=== PATIENT | male | born 1965 | race Caucasian/White ===

== ENCOUNTER 2017-01-12 22:01 | Emergency (ER) | payer MEDICAID, MEDICARE, OTHER ==
[~2017-01-12] VITALS: Ht 170.2 cm; Wt 66.8 kg
[~2017-01-12 22:01] MED LIST: CYMB60CA PO; DILA4TAB10 PO; PREG75 PO; SERO300T PO; STOO100C PO; XANA1TAB6 PO; [UNRECOGNIZED DRUG - OTHER]
[2017-01-12 22:19] VITALS: BP 147/73; PULSE 94; RESP 16; TEMP 99.4; O2SAT 98
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
[2017-01-12] MEDS ORDERED: ACETAMINOPHEN/HYDROcodone 325 MG/5 MG TAB PO ONE (23:30)
[2017-01-12 23:47] LABS: AUTOMATED NEUTROPHIL # 7.9 TH/MM3 (1.8-7.7); BASOPHIL # 0.1 TH/MM3 (0-0.2); BASOPHIL % 0.6 % (0.0-2.0); EOSINOPHIL # 0.2 TH/MM3 (0-0.4); EOSINOPHIL % 1.5 % (0.0-4.0); HEMATOCRIT 37.3 % (39.0-51.0); HEMO FLAGS DIFF FINAL; LYMPH % 29.7 % (9.0-44.0); LYMPHOCYTE # 4.2 TH/MM3 (1.0-4.8); MEAN CELL VOLUME 85.2 FL (80.0-100.0); MEAN CORPUSCULAR HEMOGLOBIN 29.5 PG (27.0-34.0); MEAN CORPUSCULAR HGB CONC 34.7 % (32.0-36.0); MONO % 11.9 % (0.0-8.0); NEUT % 56.3 % (16.0-70.0); PLATELET COUNT 421 TH/MM3 (150-450); RED BLOOD COUNT 4.37 MIL/MM3 (4.50-5.90); RED CELL DISTRIBUTION WIDTH 12.7 % (11.6-17.2); WHITE BLOOD COUNT 14.1 TH/MM3 (4.0-11.0)
[2017-01-13 00:08] LABS: ANION GAP 8 MEQ/L (5-15)
[2017-01-13 00:13] LABS: ACETAMINOPHEN LESS THAN 2.0 MCG/ML (10.0-30.0); ALKALINE PHOSPHATASE 96 U/L (45-117); ALT (GPT) 20 U/L (12-78); AST (GOT) 12 U/L (15-37); BICARBONATE 29.3 MEQ/L (21.0-32.0); BLOOD UREA NITROGEN 13 MG/DL (7-18); CHLORIDE 106 MEQ/L (98-107); GLOMERULAR FILTRATION RATE 117 ML/MIN (>89); POTASSIUM 3.8 MEQ/L (3.5-5.1); SODIUM (NA) 143 MEQ/L (136-145); TOTAL BILIRUBIN ADULT 0.3 MG/DL (0.2-1.0)
--- NOTE | 2017-01-13 00:58 | PD ---
Data Data Last Documented VS Vital Signs Date Time Temp Pulse Resp B/P Pulse Ox O2 Delivery O2 Flow Rate FiO2 01/12/17 22:19 99.4 94 16 147/73 98 Orders Complete Blood Count With Diff (01/12/17 22:05) Comprehensive Metabolic Panel (01/12/17 22:05) Urinalysis - C+S If Indicated (01/12/17 22:05) Iv Access Insert/Monitor (01/12/17 22:05) Psych Screen (01/12/17 22:05) Drug Screen, Random Urine (01/12/17 22:05) Alcohol (Ethanol) (01/12/17 22:05) Salicylates (Aspirin) (01/12/17 22:05) Tylenol (Acetaminophen) (01/12/17 22:05) Acetamin-Hydrocod 325-5 Mg ([place] 5-325 (01/12/17 23:30) Labs Laboratory Tests Test 01/12/17 23:30 White Blood Count 14.1 TH/MM3 Red Blood Count 4.37 MIL/MM3 Hemoglobin 12.9 GM/DL Hematocrit 37.3 % Mean Corpuscular Volume 85.2 FL Mean Corpuscular Hemoglobin 29.5 PG Mean Corpuscular Hemoglobin 34.7 % Concent Red Cell Distribution Width 12.7 % Platelet Count 421 TH/MM3 Mean Platelet Volume 8.3 FL Neutrophils (%) (Auto) 56.3 % Lymphocytes (%) (Auto) 29.7 % Monocytes (%) (Auto) 11.9 % Eosinophils (%) (Auto) 1.5 % Basophils (%) (Auto) 0.6 % Neutrophils # (Auto) 7.9 TH/MM3 Lymphocytes # (Auto) 4.2 TH/MM3 Monocytes # (Auto) 1.7 TH/MM3 Eosinophils # (Auto) 0.2 TH/MM3 Basophils # (Auto) 0.1 TH/MM3 CBC Comment DIFF FINAL Differential Comment Sodium Level 143 MEQ/L Potassium Level 3.8 MEQ/L Chloride Level 106 MEQ/L Carbon Dioxide Level 29.3 MEQ/L Anion Gap 8 MEQ/L Blood Urea Nitrogen 13 MG/DL Creatinine 0.71 MG/DL Estimat Glomerular Filtration 117 ML/MIN Rate Random Glucose 95 MG/DL Calcium Level 8.7 MG/DL Total Bilirubin 0.3 MG/DL Aspartate Amino Transf 12 U/L (AST/SGOT) Alanine Aminotransferase 20 U/L (ALT/SGPT) Alkaline Phosphatase 96 U/L Total Protein 8.1 GM/DL Albumin 3.5 GM/DL Salicylates Level 5.0 MG/DL Acetaminophen Level LESS THAN 2.0 MCG/ML Ethyl Alcohol Level LESS THAN 3 MG/DL [facility] Medical Record Reviewed: Yes Supervised Visit with STAR: Yes Differential Diagnosis Altered mental status/psychosis due to infection/environmental exposure/ metabolic abnormality, polypharmacy, alcohol abuse/intoxication, illicit or prescribed drug abuse, malingering/secondary gain, non-organic psychiatric disease Narrative Course I, Dr. Weber, have reviewed the advance practice practitioner's documentation and am in agreement, met with the patient face to face, made the diagnosis, and the medical decision making was done by me. *My assessment and Findings: The history of present illness, ROS, physical exam , review of records and medical workup performed for today's visit have reasonably safely excluded organic etiologies for the patient's presenting complaint. We will continue to monitor the patient carefully in the ER until time of evaluation by the psychiatry service. We are available for any additional medical assistance if needed during the patient's ER course. Disposition per discretion of psychiatry is appreciated. CBC & BMP Diagram 01/12/17 23:30 LFTs normal Please note the patient tends to have an elevated white blood cell count and in this scenario is considered nonspecific. Diagnosis Primary Impression: Suicidal ideation Additional Impressions: Chronic pain Qualified Code: G89.29 - Other chronic pain Opioid dependence Qualified Code: F11.20 - Uncomplicated opioid dependence Scripts No Active Prescriptions or Reported Meds Tolu Weber MD Jan 13, 2017 00:58
[2017-01-13 01:56] LABS: AMPHETAMINE, URINE NEG (NEG); BARBITURATES, URINE NEG (NEG); COCAINE, URINE NEG (NEG)
[2017-01-13 02:00] LABS: BLOOD, URINE SMALL (NEG); COMMENT (UR) CULT NOT INDICATED; CULTURE IF INDICATED CULT NOT INDICATED; GLUCOSE,URINE 150 mg/dL (NEG); KETONE, URINE TRACE mg/dL (NEG); MUCUS URINE FEW /lpf (OCC); NITRITE,URINE NEG (NEG); PH, URINE 6.5 (5.0-8.5); SQUAMOUS EPITHELIAL CELL URINE <1 /hpf (0-5); URINE COLOR YELLOW (YELLW/STRAW)
[2017-01-13] MEDS ORDERED: GABA600T PO (02:39)
[2017-01-13 03:00] VITALS: BP 140/72; PULSE 90; RESP 14; O2SAT 98
[2017-01-13] MEDS ORDERED: GABAPENTIN 300 MG CAP PO ONE (05:30)
[2017-01-13] MEDS ORDERED: ACETAMINOPHEN/HYDROcodone 325 MG/5 MG TAB PO ONE (05:30)
[2017-01-13] MEDS ORDERED: ONDANSETRON ODT 4 MG TAB PO PRN (09:15)
[2017-01-13] MEDS: GABAPENTIN 300 MG CAP PO SCH ×3 (09:19→23:35)
[2017-01-13] MEDS: IBUPROFEN 600 MG TAB PO PRN ×2 (09:20→23:35)
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
[2017-01-13] MEDS ORDERED: FAMO20TA2 PO (12:47)
[2017-01-13] MEDS ORDERED: RISP1TAB2 PO (12:47)
[2017-01-13] MEDS ORDERED: ONDA1TAB17 PO (12:47)
[2017-01-13 15:00] VITALS: BP 153/87; PULSE 104; RESP 18; TEMP 97.9; O2SAT 95
[2017-01-13 22:35] VITALS: BP 151/88; PULSE 67; RESP 19; O2SAT 99
[2017-01-14 02:00] VITALS: BP 153/105; PULSE 84; RESP 17; O2SAT 98
[2017-01-14 06:00] VITALS: BP 169/94; PULSE 85; RESP 18; O2SAT 99
[2017-01-14] MEDS: GABAPENTIN 300 MG CAP PO SCH ×2 (06:00→12:00)
[2017-01-14 11:01] VITALS: BP 130/77; PULSE 72; RESP 18; O2SAT 98
[2017-01-14 15:25] VITALS: BP 161/81; PULSE 81; RESP 16; O2SAT 98
--- NOTE | 2017-01-14 19:24 | MB ---
cc: MUNIR DOMINGO DATE OF CONSULTATION 01/14/17 REFERRING PHYSICIAN Emergency department REASON FOR CONSULTATION Miranda Act HISTORY OF PRESENT ILLNESS Mr. Correa is a 51-year-old male with a history of depression who presents under a Miranda Act from [facility]'s Office alleging that the patient articulated suicidal ideation in the setting of running out of his medication for the management of his chronic pain. Reviewing the electronic medical record, I note that the patient was admitted most recently under Dr. Montemayor in 2011 with a discharge diagnosis of major depression and chronic pain. I also note that the patient was evaluated by the psychiatric nurse practitioner yesterday, at which point he was continuing to articulate suicidal ideation. The patient seen and examined. Chart reviewed. Case discussed with nurse in the J pod. There has been no evidence of any suicidal or homicidal behavior while under observation in the emergency room for approximately 45 hours. On my evaluation today, the patient is requesting discharge from the psychiatric emergency room. He says "I want to go home". He denies any suicidal ideation, intent or plan on direct questioning and says that he is no longer suicidal because his pain is now under better control. He says that he would not hurt himself because of his life affirming zoroastrian beliefs. He does admit that his mood is somewhat depressed and his sleep is poor, but otherwise I can elicit no depressive or hypomanic/manic symptoms in this patient at this time. He denies any homicidal ideation. He denies any audiovisual hallucinations and I can elicit no delusional beliefs. The remainder of the psychiatric ROS is negative. PAST PSYCHIATRIC HISTORY The patient has a history of multiple prior psychiatric hospitalizations within our system, most recently in [address] Montemayor as I said. The patient denies any history of suicide attempts. He is not presently under the care of a psychiatrist but is willing to accept an outpatient psychiatric referral. FAMILY HISTORY The patient denies any family history of serious mental illness, substance use disorder or suicide. CHEMICAL DEPENDENCY HISTORY The patient denies any abuse of drugs or alcohol. A urine toxicology was negative. Alcohol level undetectable on presentation here. SOCIAL HISTORY The patient reports that he lives with his brother. He is active in his episcopal. No reported access to guns or firearms. PAST MEDICAL HISTORY See electronic medical record. REVIEW OF SYSTEMS The patient reports that his chronic pain issues are now under better control. PHYSICAL EXAMINATION Vital signs: Temperature 97.9, pulse 81, respirations 16, blood pressure 161/81, pulse oximetry 98% on room air. Physical examination completed by the ED provider. On my examination today, the patient appears to be in no acute physical distress. No overt pain behaviors noted. No abnormal motor movements noted. LABORATORY DATA Reviewed: CBC is significant for mild leukocytosis at 14.1 and mild normocytic anemia with hemoglobin of 12.9. CMP is unremarkable. Toxicology results as above. Urinalysis reviewed. MENTAL STATUS EXAM The patient is in hospital gown. He is well-groomed and appears to be attending to his basic needs. He is awake and alert and oriented x3. No evidence of delirium. No abnormal motor movements noted. Speech is within normal limits for rate, tone and volume. Language and fund of knowledge seem average. Mood is mildly dysphoric but not severely depressed. Affect remains fairly full and reactive. Thought process linear. No loosening of associations. No evident delusions. Denies audiovisual hallucinations. Denies suicidal or homicidal ideation, intent or plan. Insight and judgment are fair. ASSESSMENT/PLAN Adjustment disorder with depressed mood, F43.21. This is a 51-year-old male with psychiatric history as detailed above who presents under a Miranda Act. The patient is presently denying suicidal or homicidal ideation and is requesting discharge from the psychiatric emergency room. I can detect no severely unstable mood, anxiety or psychotic disorder in this patient at this time. He appears to be attending to his basic needs. Synthesizing this information and weighing the acute, chronic, and protective factors and based on the available evidence, I platform builder to a reasonable degree of medical certainty that the patient is at low imminent risk of harm to self or others from a mental illness as defined under the Miranda Act and his level of function is adequate for outpatient care. Consequently, the patient does not meet Miranda Act criteria and I have lifted the Miranda Act. Given that the patient does not meet criteria for involuntary psychiatric hospitalization and given that he is requesting discharge from the psychiatric emergency room today, I must recommend his discharge from the emergency room from a psychiatric standpoint. He is willing to accept an outpatient psychiatric referral and we will provide him with one. I have counseled the patient regarding warning signs for need to return to the psychiatric emergency room as part of a general safety plan. The patient is otherwise psychiatrically clear for discharge from the ED. Thank you very much for this consultation. Case discussed with RN in the J pod. Munir MANZANARES /6:48 PM /7:07 PM LUCI
== END 2017-01-14 21:00 | disposition home or self-care (01) ==
LOC: NEPE 22:01 → NEPJ 01-14 21:00
DX: F43.21 Adjustment disorder with depressed mood (principal); G89.29 Other chronic pain; F11.20 Opioid dependence, uncomplicated
CPT/HCPCS: 80053; 80307; 81001; 85025; 99285

== ENCOUNTER 2017-02-19 14:44 | Emergency (ER) | payer OTHER ==
[~2017-02-19 14:44] MED LIST changes: -CYMB60CA PO; -DILA4TAB10 PO; +FAMO20TA2 PO; +GABA600T PO; +ONDA1TAB17 PO; -PREG75 PO; +RISP1TAB2 PO; -SERO300T PO; -STOO100C PO; -XANA1TAB6 PO; -[UNRECOGNIZED DRUG - OTHER]
[2017-02-19 15:22] VITALS: BP 119/76; PULSE 102; RESP 18; TEMP 98.3; O2SAT 95
--- NOTE | 2017-02-19 15:58 | PD ---
HPI Chief Complaint: Psychiatric Symptoms Time Seen by Provider: 15:58 Travel History International Travel<30 days: No Contact w/Intl Traveler<30days: No History of Present Illness HPI 51-year-old male transferred from [facility] ED for psychiatric evaluation. Patient states that he was taken off of his chronic morphine by his pain management physician 1 week ago and has had worsening depression since then. States that he "doesn't feel like living anymore." He denies any specific suicidal ideations. Denies any homicidal ideations. Denies any recreational drug use, IV drug use or alcohol use. He complains of lower back pain that has been present for 15 years. Denies any new injury or trauma. Denies any fever, chills, nausea, vomiting, numbness or tingling, weakness, saddle anesthesia, bowel or bladder incontinence. He states he has a history of depression but does not take any medications for this condition. PCP is in [place]. No other complaints. PFSH Past Medical History Arthritis: Yes Asthma: No Autoimmune Disease: No Blood Disorders: No Bipolar Disorder: Yes Depression: Yes (FIRST TIME DIAGNOSED BY DR EPSTEIN YESTERDAY) Heart Rhythm Problems: No Cardiovascular Problems: Yes High Cholesterol: No Chest Pain: No Congestive Heart Failure: No COPD: No Cerebrovascular Accident: No Diabetes: No Diminished Hearing: No Endocrine: No Gastrointestinal Disorders: Yes GERD: Yes Genitourinary: Yes Headaches: No Hepatitis: No Hiatal Hernia: No Hypertension: No Immune Disorder: No Kidney Stones: No Musculoskeletal: Yes Neurologic: Yes Reproductive: No Respiratory: No Migraines: No Myocardial Infarction: No Renal Failure: No Seizures: No Sickle Cell Disease: No Sleep Apnea: Yes Ulcer: No Past Surgical History Abdominal Surgery: Yes (SPLEEN REMOVED) Cardiac Surgery: No Cholecystectomy: Yes Ear Surgery: No Eye Surgery: No Genitourinary Surgery: No Gynecologic Surgery: No Oral Surgery: No Thoracic Surgery: No Other Surgery: Yes (SPLENECTOMY) Social History Alcohol Use: No Tobacco Use: No Substance Use: No Allergies-Medications (Allergen,Severity, Reaction): Coded Allergies: Cranberry (Verified Allergy, Severe, 02/19/17) Naprosyn (Verified Allergy, Severe, MENTAL CONFUSION, 02/19/17) CONFUSION Penicillin (Verified Allergy, Severe, Rash, 02/19/17) RASH Reported Meds & Prescriptions Reported Meds & Active Scripts Active Reported Gabapentin 600 Mg Tab 600 Mg PO Q6HR Review of Systems Except as stated in HPI: all other systems reviewed are Neg Physical Exam Narrative GENERAL: Well-nourished and well-developed pleasant male patient in no acute distress who is nontoxic appearing. SKIN: Warm and dry. HEAD: Normocephalic and atraumatic. EYES: No injection, drainage, or hyphema noted. PERRLA. EOMI. ENT: No nasal drainage noted. Oropharynx is clear. NECK: Supple and the trachea is midline. CARDIOVASCULAR: Regular rate and rhythm. RESPIRATORY: Breath sounds are equal bilaterally with no accessory muscle use, wheezing, rhonchi, or crackles. GASTROINTESTINAL: Abdomen is soft, non-tender, and nondistended. MUSCULOSKELETAL: No obvious deformities, swelling, cyanosis, or ecchymosis is present throughout the upper and lower extremities. Patient has full range of motion without any signs of neurovascular compromise. Strength 5/5 upper and lower extremities equal bilaterally. BACK: Mild tenderness to palpation of lumbar region. No obvious deformities, bony point tenderness, or crepitus noted throughout the thoracic and lumbar vertebrae. NEUROLOGICAL: Awake, alert, and oriented. Normal speech and gait. Cranial nerves are grossly intact. Data Data Last Documented VS Vital Signs Date Time Temp Pulse Resp B/P Pulse Ox O2 Delivery O2 Flow Rate FiO2 02/19/17 15:22 98.3 102 18 119/76 95 Room Air Orders Diet Regular Basic (02/19/17 Dinner) Psych Screen (02/19/17 15:56) [facility] Medical Decision Making Medical Screen Exam Complete: Yes Emergency Medical Condition: Yes Differential Diagnosis Differential: Depression versus adjustment reaction versus anxiety versus PTSD versus psychosis NOS versus mood disorder NOS versus substance induced mood disorder versus ODD versus adjustment reaction versus schizophrenia versus bipolar disorder versus schizoaffective versus electrolyte abnormality versus dementia versus malingering. Narrative Course 51-year-old male transferred from the [place] ED for voluntary psychiatric evaluation. Patient is afebrile, vital signs are stable. He complains of lower back pain which she has had chronically for the past 15 years. No new injury or trauma. No red flag signs or symptoms. Patient was already seen at [place] and had lab work which I reviewed and it is unremarkable for any acute abnormalities. The patient is medically cleared for psychiatric evaluation and disposition. Diagnosis Primary Impression: Depression Qualified Code: F32.9 - Depression, unspecified depression type Leny Cornelius February 19, 2017 15:58
[2017-02-19 17:41] VITALS: BP 119/76; PULSE 102; RESP 18; O2SAT 98
[2017-02-19 17:58] VITALS: BP 126/74; PULSE 97; RESP 18; O2SAT 98
[2017-02-19] MEDS ORDERED: VIST50CA PO (18:40)
== END 2017-02-19 19:08 | disposition home or self-care (01) ==
LOC: NEPJ 14:44
DX: F32.9 Major depressive disorder, single episode, unspecified (principal); K21.9 Gastro-esophageal reflux disease without esophagitis; G47.30 Sleep apnea, unspecified; M54.5 Low back pain
CPT/HCPCS: 80053; 80307; 81001; 82150; 83690; 84484; 85025; 93005; 96361; 96374; 99284; 99285; J2270; J7030